=== PATIENT | male | born 1970 | race Caucasian/White ===

== ENCOUNTER 2019-04-07 11:38 | Outpatient (CLI) | payer OTHER, SELFPAY ==
[2019-04-10 05:25] LABS: Prolactin 53.8 ng/mL (***)
[2019-04-12 13:55] LABS: Testosterone Total 250 ng/dL (250-1100)
== END 2019-04-07 11:39 | disposition home or self-care (01) ==
LOC: ANHLAB 11:41
PROVIDERS: PCP Internal Medicine; Visit Provider Internal Medicine Endocrinology, Diabetes & Metabolism
DX: D35.2 Benign neoplasm of pituitary gland (principal)
CPT/HCPCS: 36415; 84146; 84402; 84403

== ENCOUNTER 2019-08-11 07:25 | Outpatient (CLI) | payer OTHER, SELFPAY ==
[2019-08-11 07:58] LABS: Hematocrit 39.7 % (42.0-52.0); Hemoglobin 14.1 g/dL (14.0-18.0)
[2019-08-11 08:41] LABS: Prostate Specific Antigen 0.4 ng/mL (< OR = 4.0)
[2019-08-15 14:45] LABS: Testosterone Free 43.2 pg/mL (35.0-155.0); Testosterone Total 318 ng/dL (250-1100)
[2019-08-15 21:55] LABS: Prolactin 52.6 ng/mL (***)
== END 2019-08-11 07:26 | disposition home or self-care (01) ==
PROVIDERS: PCP Internal Medicine; Visit Provider Internal Medicine Endocrinology, Diabetes & Metabolism
DX: D35.2 Benign neoplasm of pituitary gland (principal); E29.1 Testicular hypofunction
CPT/HCPCS: 36415; 84146; 84153; 84402; 84403; 85014; 85018; G0103

== ENCOUNTER 2020-01-19 07:26 | Outpatient (CLI) | payer OTHER, SELFPAY ==
[2020-01-19 07:57] LABS: Basophils Percent Auto 0.6 % (0.2-1.2); Eosinophils Absolute Auto 0.3 K/mm3 (0-0.3); Eosinophils Percent Auto 5.3 % (0-4.4); Hematocrit 40.1 % (42.0-52.0); Hemoglobin 14.4 g/dL (14.0-18.0); Immature Granulocyte Absolute 0.02 K/mm3 (0.00-0.031); Immature Granulocyte Percent A 0.4 % (0-0.5); Lymphocytes Absolute Auto 1.44 K/mm3 (0.9-3.2); Lymphocytes Percent Auto 29.5 % (18.3-44.2); Mean Corpuscular HGB Conc 35.9 g/dl (32-36); Mean Corpuscular Hemoglobin 31.8 pg (26-34); Mean Corpuscular Volume 88.5 fl (80-100); Mean Platelet Volume 10.3 fl (7.4-10.4); Monocytes Absolute Auto 0.5 K/mm3 (0.1-0.6); Monocytes Percent Auto 10.9 % (2.6-8.5); Neutrophils Absolute Auto 2.6 K/mm3 (1.3-6.7); Neutrophils Percent Auto 53.3 % (45.5-73.1); Platelet Count Result 148 k/mm3 (150-375); Red Blood Count 4.53 M/mm3 (4.6-6.20); Red Cell Distribution Width 12.4 % (11.5-14.5); White Blood Count 4.9 K/mm3 (4.5-10.0)
[2020-01-19 08:18] LABS: Alanine Aminotransferase 30 U/L (4-50); Albumin Level 4.2 g/dL (3.5-5.1); Alkaline Phosphatase 66 U/L (38-126); Anion Gap 3 mmol/L (8-16); Aspartate Amino Transferase 25 U/L (17-59); Bilirubin,Total 1.3 mg/dL (0.2-1.3); Blood Urea Nitrogen 17 mg/dL (9-20); Calcium 9.3 mg/dL (8.4-10.2); Carbon Dioxide 31 mmol/L (22-30); Chloride 105 mmol/L (98-107); Cholesterol 214 mg/dL (0-200); Estimated Glomerular Filt Rate > 60; Glucose 93 mg/dL (75-110); HDL Direct 35 mg/dL; Sodium 139 mmol/L (137-145); Triglycerides 221 mg/dL (<150)
[2020-01-19 08:29] LABS: LDL Cholesterol Direct 113 mg/dL
[2020-01-19 08:48] LABS: Cortisol Random 7.85 ug/dL
[2020-01-19 08:49] LABS: Prostate Specific Antigen 0.4 ng/mL (< OR = 4.0)
[2020-01-19 09:26] LABS: Folic Acid 8.6 ng/mL (2.76->20); Vitamin B12 > 1000.0 pg/mL (239-931)
[2020-01-24 12:31] LABS: Testosterone Free 61.9 pg/mL (35.0-155.0); Testosterone Total 364 ng/dL (250-1100)
== END 2020-01-19 07:27 | disposition home or self-care (01) ==
PROVIDERS: PCP Internal Medicine; Visit Provider Internal Medicine
DX: E78.5 Hyperlipidemia, unspecified (principal); Z12.5 Encounter for screening for malignant neoplasm of prostate; R53.83 Other fatigue; R76.8 Other specified abnormal immunological findings in serum
CPT/HCPCS: 36415; 80053; 80061; 82533; 82607; 82746; 84153; 84402; 84403; 84443; 85025; 86038; 86039

== ENCOUNTER 2020-06-12 10:26 | Outpatient (CLI) | payer OTHER, SELFPAY ==
--- NOTE | ~2020-06-12 | XR_ITS ---
XR hand LT min 3V DATE: 06/12/2020 11:11 INDICATION: Multiple left hand joint pain TECHNIQUE: 3 views COMPARISON: None FINDINGS: There is an old healed boxer's fracture deformity of the fifth metacarpal neck. Mild osteoarthritic change at some of the interphalangeal joints. No fracture or dislocation, periosteal reaction or bone destruction. IMPRESSION: Old healed boxer's fracture of fifth metacarpal Mild osteoarthritis Reviewed, dictated and finalized at location A.
--- NOTE | ~2020-06-12 | XR_ITS ---
EXAMINATION: XR knee RT 3V DATE: 06/12/2020 11:11 INDICATION: Multiple joint pain. TECHNIQUE: 3 views of right knee were obtained. COMPARISON: None. FINDINGS: Bone alignment is normal. No fracture. There is mild tricompartmental osteoarthritis charac terized by tiny marginal osteophytes. No knee joint effusion. IMPRESSION: 1. Mild right knee osteoarthritis. Reviewed, dictated and finalized at location A.
--- NOTE | ~2020-06-12 | XR_ITS ---
EXAMINATION: XR hip RT min 2V DATE: 06/12/2020 11:11 INDICATION: Multiple joint pain. TECHNIQUE: 2 views of right hip were obtained. COMPARISON: None. FINDINGS: Bone alignment is normal. No fracture. Right hip joint space is normal. IMPRESSION: 1. Normal right hip. Reviewed, dictated and finalized at location A. IMPRESSION: 1. Normal right hip.
--- NOTE | ~2020-06-12 | XR_ITS ---
XR hand RT min 3V DATE: 06/12/2020 11:11 INDICATION: Multiple joint pain TECHNIQUE: 3 views of right hand COMPARISON: None FINDINGS: Moderate osteoarthritic arthritis at the first carpometacarpal joint. There is osteoarthrit ic change of moderate degree at the first metacarpophalangeal and interphalangeal joints. Mild interp halangeal joint osteoarthritis is noted at multiple joints including the third proximal interphalange al joint. No fracture, dislocation, periosteal reaction or bone destruction, erosive change or chondrocalcinosi s. IMPRESSION: Polyarticular osteoarthritis Reviewed, dictated and finalized at location A.
--- NOTE | ~2020-06-12 | XR_ITS ---
EXAMINATION: XR knee LT 3V DATE: 06/12/2020 11:11 INDICATION: Multiple joint pain. TECHNIQUE: 3 views of left knee were obtained. COMPARISON: None. FINDINGS: Bone alignment is normal. No fracture. There is moderate osteoarthritis of lateral compartm ent and mild osteoarthritis of medial and patellofemoral compartments. No knee joint effusion. IMPRESSION: 1. Moderate left knee osteoarthritis. Reviewed, dictated and finalized at location A.
== END 2020-06-12 10:27 | disposition home or self-care (01) ==
PROVIDERS: PCP Internal Medicine; Visit Provider Internal Medicine Rheumatology
DX: M25.50 Pain in unspecified joint (principal); M19.041 Primary osteoarthritis, right hand; M19.042 Primary osteoarthritis, left hand; M17.0 Bilateral primary osteoarthritis of knee
CPT/HCPCS: 73130; 73502; 73562

== ENCOUNTER → 2020-07-03 02:13 | Outpatient (CLI) | payer OTHER, SELFPAY ==
[2020-07-03 19:24] LABS: SARS-CoV-2 RNA PCR Negative
== END ==
PROVIDERS: PCP Internal Medicine; Visit Provider Internal Medicine Critical Care Medicine
DX: Z01.812 Encounter for preprocedural laboratory examination (principal); Z20.822 Contact with and (suspected) exposure to COVID-19
CPT/HCPCS: C9803; U0003; U0005

== ENCOUNTER 2020-07-05 10:12 | Outpatient (CLI) | payer OTHER, SELFPAY ==
--- NOTE | 2020-07-11 11:46 | WPDSLEEPSTUD ---
Sleep Study Ordering Provider: Leatha Page MD Interpreting Physician: Claudia Bennett MD Sleep Study Type: Polysomnogram Height: 1.78 m Weight: 96.162 kg Body Mass Index: 30.4 Neck Circumference (inches): 16.5 Harrison: 5 Reason for Sleep Study Loud snoring, tired in the daytime Sleep History Flo Hartmann is a 50 year old man who has difficulty falling asleep and staying asleep. He snores at times. He is tired during the day. This does not happen every night. It has been going on for 1-2 years. He occasionally awakens from sleep feeling short of breath. He rarely awakens at night with heartburn, belching or coughing. He occasionally snores and occasionally it is loud enough that others complain about it. He occasionally has trouble sleeping with a cold. He does not wake up gasping for breath at night. He does not have breathing problems at night observed by others. He rarely sweats excessively at night. He does not notice his heart pounding or beating irregularly night. He rarely falls asleep during the day, never involuntarily and never while driving. He rarely has loss of muscle tone with strong emotion. 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 he does not feel paralyzed on waking or falling asleep. He does not have vivid dreamlike scenes upon awakening or falling asleep. He does not feel afraid to go to sleep. He occasionally has nightmares, occasionally remembers his dreams. He occasionally has racing thoughts. On occasion he feels sad, depressed and anxious. He occasionally has muscular tension. He rarely notices parts of his body jerking. He occasionally kicks at night and occasionally has crawling and aching feelings in his legs. He occasionally has leg pain at night. He does not wake up with morning jaw pain and he does not grind his teeth during sleep. He occasionally has bothered by pain during the day and occasionally is awake at night. He frequently wakes up feeling stiff in the morning. He rarely wakes up with sore or achy muscles. He occasionally wakes up with pain in the neck and spine. He has fatigue, bowel disturbances and insomnia. He has had problems with sexual function with a history of a pituitary adenoma. He is allergic to trees, grasses, and pet dander. Normal bedtime is 10:30 p.m. falling asleep within an hour, typically waking 3-4 times at night, sometimes more often. He is not sure what is waking him at night. He rolls over and tries to go back to sleep which usually takes about 5 minutes. He wakes the morning at 5:00 a.m.. On the weekend he stays awake until 11:00 p.m. and wakes at 6:30 a.m. he has call shifts every . He does not take naps. A short nap is not refreshing. Most of the time he feels good in the morning. He feels better in the afternoon compared to the mornings in general. Habits: Never smoked tobacco. Caffeine 2-3 cups a day. 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 Family History Family History Mother Asthma Family history of arthritis Father Malignant neoplasm of prostate Social History Social History Smoking status: Never smoker Second hand tobacco smoke exposure: No Alcohol intake: current Substance use: never Medications Home Medications Medication Instructions Recorded Confirmed Type cholecalciferol (vitamin D3) 1,250 50,000 unit PO WEEKLY 02/10/19 03/13/20 History mcg (50,000 unit) capsule fluticasone propionate 50 2 spray NASAL DAILY 02/10/19 03/13/20 History mcg/actuation nasal spray,suspension naproxen sodium 220 mg tablet 220 mg PO BID PRN 02/10/19 03/13/20 History vitamin B12 500 mcg-folic acid 400 1 tab
[2020-07-11 11:55] VITALS: BMI 30.4
== END 2020-07-05 10:13 | disposition home or self-care (01) ==
LOC: ANHCSM 10:12
PROVIDERS: PCP Internal Medicine; Visit Provider Internal Medicine Endocrinology, Diabetes & Metabolism
DX: G47.10 Hypersomnia, unspecified (principal); G47.33 Obstructive sleep apnea (adult) (pediatric); G25.81 Restless legs syndrome
CPT/HCPCS: 95810

== ENCOUNTER 2020-10-05 06:55 | Outpatient (CLI) | payer OTHER, SELFPAY ==
[2020-10-05 07:25] LABS: Basophils Percent Auto 0.8 % (0.2-1.2); Eosinophils Absolute Auto 0.3 K/mm3 (0-0.3); Eosinophils Percent Auto 5.8 % (0-4.4); Hematocrit 39.6 % (42.0-52.0); Hemoglobin 14.1 g/dL (14.0-18.0); Immature Granulocyte Absolute 0.01 K/mm3 (0.00-0.031); Immature Granulocyte Percent A 0.2 % (0-0.5); Lymphocytes Absolute Auto 1.41 K/mm3 (0.9-3.2); Lymphocytes Percent Auto 29.2 % (18.3-44.2); Mean Corpuscular HGB Conc 35.6 g/dl (32-36); Mean Corpuscular Hemoglobin 31.5 pg (26-34); Mean Corpuscular Volume 88.6 fl (80-100); Mean Platelet Volume 10.2 fl (7.4-10.4); Monocytes Absolute Auto 0.6 K/mm3 (0.1-0.6); Monocytes Percent Auto 11.6 % (2.6-8.5); Neutrophils Absolute Auto 2.5 K/mm3 (1.3-6.7); Neutrophils Percent Auto 52.4 % (45.5-73.1); Nucleated Red Blood Cells Perc 0.6 % (0.0-0.2); Platelet Count Result 152 k/mm3 (150-375); Red Blood Count 4.47 M/mm3 (4.6-6.20); Red Cell Distribution Width 12.4 % (11.5-14.5); White Blood Count 4.8 K/mm3 (4.5-10.0)
[2020-10-05 07:46] LABS: Alanine Aminotransferase 37 U/L (4-50); Albumin Level 4.2 g/dL (3.5-5.1); Alkaline Phosphatase 85 U/L (38-126); Anion Gap 7 mmol/L (8-16); Aspartate Amino Transferase 26 U/L (17-59); Bilirubin,Total 0.9 mg/dL (0.2-1.3); Blood Urea Nitrogen 19 mg/dL (9-20); Calcium 9.4 mg/dL (8.4-10.2); Carbon Dioxide 25 mmol/L (22-30); Chloride 106 mmol/L (98-107); Cholesterol 248 mg/dL (0-200); Estimated Glomerular Filt Rate > 60; Glucose 104 mg/dL (65-110); HDL Direct 39 mg/dL; Potassium 4.1 mmol/L (3.4-5.0); Sodium 138 mmol/L (137-145); Triglycerides 222 mg/dL (<150)
[2020-10-05 07:57] LABS: LDL Cholesterol Direct 120 mg/dL
[2020-10-05 08:17] LABS: Prostate Specific Antigen 0.4 ng/mL (< OR = 4.0)
[2020-10-05 08:56] LABS: Folic Acid 8.3 ng/mL (2.76->20); Vitamin B12 > 1000.0 pg/mL (239-931)
[2020-10-08 14:01] LABS: Testosterone Total 247 ng/dL (250-1100)
[2020-10-08 14:42] LABS: Prolactin 45.2 ng/mL (***)
[2020-10-08 18:16] LABS: Testosterone Free 33.9 pg/mL (46.0-224.0)
== END 2020-10-05 06:56 | disposition home or self-care (01) ==
PROVIDERS: PCP Internal Medicine; Visit Provider Internal Medicine Endocrinology, Diabetes & Metabolism
DX: Z12.5 Encounter for screening for malignant neoplasm of prostate (principal); D35.2 Benign neoplasm of pituitary gland; R53.83 Other fatigue; E29.1 Testicular hypofunction; G25.81 Restless legs syndrome
CPT/HCPCS: 36415; 80053; 80061; 82607; 82728; 82746; 84146; 84153; 84402; 84403; 84443; 85025; G0103

== ENCOUNTER 2023-06-02 01:45 | Day surgery (SDC) | payer OTHER, SELFPAY ==
[2023-05-25 12:33] VITALS: BMI 30.9
--- NOTE | 2023-05-29 10:50 | SUR.PREOP ---
Patient called regarding upcoming procedure. Reviewed preop instructions, appointment times, and procedure prep.
[2023-06-02 09:05] VITALS: BP 112/84; PULSE 69; RESP 16; TEMP 36.1; O2SAT 100
[2023-06-02] MEDS: LACTATED RINGERS 1,000 ML 150 ML IV CONT (09:19)
--- NOTE | 2023-06-02 09:27 | WPDANESEPPF ---
Anes - Initial Pre Proc Eval Procedure: Operation Date: 06/02/23 10:30 Proposed Procedures p Screening Colonoscopy - Shashank Liriano MD Date/Time: 06/02/23 09:27 Surgeon: Shashank Liriano MD Pre Op Diagnosis: neoplasm screening Patient Data Age: 53 Gender: M Height: 1.75 m Weight: 93.6 kg Last Vital Signs Temp 96.9 F L 06/02/23 09:05 Pulse 69 06/02/23 09:05 Resp 16 06/02/23 09:05 BP 112/84 06/02/23 09:05 Pulse Ox 100 06/02/23 09:05 O2 Del Method Room Air 06/02/23 09:05 Allergies Allergy/AdvReac Type Severity Reaction Status Date / Time erythromycin base Allergy Mild unknown Verified 06/02/23 09:04 Home Medications Medication Instructions Recorded Confirmed Type cholecalciferol (vitamin D3) 1,250 50,000 unit PO WEEKLY 02/10/19 05/25/23 History mcg (50,000 unit) capsule fluticasone propionate 50 2 spray intranasal DAILY 02/10/19 05/25/23 History mcg/actuation nasal spray,suspension (Flonase Allergy Relief) naproxen sodium 220 mg tablet 220 mg PO BID PRN Pain 02/10/19 05/25/23 History (Aleve) vitamin B12 500 mcg-folic acid 400 1 tablet PO DAILY 02/10/19 05/25/23 History mcg tablet testosterone (AndroGel) 3 pump topical DAILY 90 days #225 02/02/22 05/25/23 Rx grams cabergoline 0.5 mg tablet See Rx Instructions .Route 10/13/22 06/02/23 Rx .COMPLEX #90 tabs Patient hx anesthesia problems: none Family hx anesthesia problems: none Results Review: All pre-operative results and documents have been reviewed as part of the pre-operative evaluation. 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 Family History Family History Mother Asthma Family history of arthritis Parkinsons Father Malignant neoplasm of prostate Social History Social History Smoking status: Never smoker Second hand tobacco smoke exposure: No Alcohol intake: current Drinks per week: 2 Substance use: never Substance use type: does not use Living arrangements: with family Spiritual care concerns: No Anes - Eval Final PreProcedure Day of Procedure 06/02/23 09:27 Patient weight: normal Heart: regular rate and rhythm Lungs: clear to auscultation Airway: Mallampati scale class II Neurological: alert and oriented Last oral intake: >/= 8 hours ASA classification: II Emergent: no Anesthetic plan: proceed Anesthesia type and monitoring: general GIVS and standard monitoring Results Review: All pre-operative results and documents have been reviewed as part of the pre-operative evaluation. Informed Consent: The patient's anesthetic plan and its attendant risks and benefits were discussed with the patient/family/POA. Questions were solicited and answers provided to the satisfaction of the patient/family/POA.
--- NOTE | 2023-06-02 09:57 | PM.HPGS ---
History of Present Illness History of Present Illness Consent: Risks, benefits, and alternatives have been discussed and questions answered. Patient agrees to proceed with procedure. 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 Family History Family History Mother Asthma Family history of arthritis Parkinsons Father Malignant neoplasm of prostate Social History Social History Smoking status: Never smoker Second hand tobacco smoke exposure: No Alcohol intake: current Drinks per week: 2 Substance use: never Substance use type: does not use Living arrangements: with family Spiritual care concerns: No Meds Home Medications and Allergies Home Medications Medication Instructions Recorded Confirmed Type cholecalciferol (vitamin D3) 1,250 50,000 unit PO WEEKLY 02/10/19 05/25/23 History mcg (50,000 unit) capsule fluticasone propionate 50 2 spray intranasal DAILY 02/10/19 05/25/23 History mcg/actuation nasal spray,suspension (Flonase Allergy Relief) naproxen sodium 220 mg tablet 220 mg PO BID PRN Pain 02/10/19 05/25/23 History (Aleve) vitamin B12 500 mcg-folic acid 400 1 tablet PO DAILY 02/10/19 05/25/23 History mcg tablet testosterone (AndroGel) 3 pump topical DAILY 90 days #225 02/02/22 05/25/23 Rx grams cabergoline 0.5 mg tablet See Rx Instructions .Route 10/13/22 06/02/23 Rx .COMPLEX #90 tabs Allergies Allergy/AdvReac Type Severity Reaction Status Date / Time erythromycin base Allergy Mild unknown Verified 06/02/23 09:04 Vital Signs Vital Signs - 24 hr 06/02/23 09:05 Temperature 96.9 F L Pulse Rate 69 Respiratory Rate 16 Blood Pressure 112/84 Pulse Oximetry 100 Oxygen Delivery Room Air Exam Const: General: comfortable and no acute distress HENMT: Face/Nose/Sinus: Normal nares present Eyes: General: appearance normal, both eyes and all related structures Neck: Neck: no JVD Resp: Auscultation: clear to auscultation bilaterally Cardio: Rate: regular rate Rhythm: regular rhythm GI: Inspection: non-distended GI Palp: Yes Soft to palpation Skin: General skin exam: normal color Neuro: General: gait normal Speech: normal speech Extrem: General: normal to inspection Psych: Mental Status: mental status grossly normal Assessment and Plan Assessment and plan (1) Colon cancer screening: Code(s): Z12.11 - Encounter for screening for malignant neoplasm of colon Status: Acute Assessment and Plan: colonoscopy
[2023-06-02 10:11] VITALS: BP 96/69; PULSE 77; RESP 23; O2SAT 94
[2023-06-02 10:21] VITALS: BP 103/76; PULSE 81; RESP 24; O2SAT 100
[2023-06-02 10:31] VITALS: BP 113/83; PULSE 70; RESP 16; O2SAT 99
== END 2023-06-02 10:43 | disposition home or self-care (01) ==
PROVIDERS: PCP Internal Medicine; Visit Provider Internal Medicine Gastroenterology
PROC: 0DJD8ZZ Inspection of Lower Intestinal Tract, Via Natural or Artificial Opening Endoscopic (ICD-10-PCS; CPT 45378; principal; 2023-06-02 10:30)
DX: Z12.11 Encounter for screening for malignant neoplasm of colon (principal); K64.8 Other hemorrhoids; E29.1 Testicular hypofunction; Z79.1 Long term (current) use of non-steroidal anti-inflammatories (NSAID); Z86.018 Personal history of other benign neoplasm; Z80.42 Family history of malignant neoplasm of prostate
CPT/HCPCS: 45378; J2704; J7120

== ENCOUNTER 2024-04-12 11:18 | Outpatient (CLI) | payer OTHER, SELFPAY ==
--- NOTE | ~2024-04-12 | XR_ITS ---
Right Hand Technique: PA, oblique, and lateral views were obtained. Clinical History: Radial styloid tenosynovitis Findings: No acute fracture or dislocation is seen. Osseous alignment is anatomic. There is mild to m oderate degenerative change of the first CMC joint and first MCP joint. Soft tissues are unremarkable . Impression: Degenerative changes of the thumb, as above. Reviewed, dictated and finalized at location M. [facility] Impression: Degenerative changes of the thumb, as above.
--- OUTSIDE RECORDS SUMMARY | 2024-04-12 12:41 | XMS_ITS | Clinical Summary ---
Author Organization [facility] Address [address] [place] [address] Phone Care Team Providers Care Cloud Administrator Name Role Phone Unavailable Unavailable Unavailable Reason for Visit and Chief Complaint The Chief Complaint is: PRE EMPLOYMENT EXAM AND TB TEST(( GIVEN SUBQ LEFT ARM) Plan of Treatment Patient evaluated and cleared for work. Form filled out and sent back to in office mail. Patient had labs completed at hospital this morning. Return in 48-72 hours for TB test reading. Then return again for second round. Return for any concerns. - Last Documented On 10/16/2020 1:07PM ; [facility] Instructions to patient Intervention and counseling on cessation of tobacco use Last Documented On 9:44AM ; [facility] Assessments Includes: Assessments from this encounter Findings - [Z00.00 - Encounter for general adult medical examination without abnormal findings] Routine examination - Last Documented On 10/16/2020 1:07PM ; [facility] Instructions Includes: Instructions from this encounter Instructions to patient Intervention and counseling on cessation of tobacco use Last Documented On 9:44AM ; [facility] Medical Equipment - Implanted Devices Includes: Current Devices No Medical Equipment Recorded Medications Administered Includes: Administered Medications from this encounter No Administered Medications Recorded Vital Signs Includes: Vital Signs from this encounter Vital Name 10/16/2020 09:36A Blood Pressure Sitting L 100/70 Pulse Rate-Sitting (bpm) 60 Respiration Rate (breaths/min) 20 Temp-Oral (F) 97.5 Height (in) 69.5 Weight (lb) 210.25 Body Mass Index (kg/m2) 30.6 Body Surface Area (m2) 2.1 Last Documented: On 10/16/2020 9:43AM ; [facility] Results Includes: Results discussed during this encounter No Results Recorded For Specified Dates History of Present Illness Includes: History of Present Illness from this encounter SYLVIA GAN is a 50 year old male. - Allergy list reviewed. - No systemic symptoms. - No head symptoms. - No otolaryngeal symptoms. - No cardiovascular symptoms. - No pulmonary symptoms. - No gastrointestinal symptoms. - No genitourinary symptoms. - No musculoskeletal symptoms. - No psychological symptoms. Patient is here for pre-employment physical exam. 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 Patient denies any issues or concerns today. He reports his blood pressure always runs a little low but he denies any symptoms with this. Social History Description Last Updated Tobacco non-user 10/16/2020 Last Documented On 1 1:07PM ; [facility] Smoking Status Unknown Procedures and Surgical History Includes: Procedures from this encounter Procedures Code Diagnosis Performing Provider Service L ocation Service Date intervention and counseling on cessation of tobacco use 4000F Last Documented On 1 9:44AM ; [facility] use of tobacco assessment performed 1000F Last Documented On 1 9:44AM ; [facility] review of medications documented 1160F Last Documented On 1 9:44AM ; [facility] Medical History Includes: Medical History addressed during this encounter No Medical History Recorded Family History Includes: Family History addressed during this encounter No Family History Recorded Review of Systems Includes: Review of Systems from this encounter Systemic: No fever, no chills, and no recent weight change. Head: No headache and no sinus pain. Otolaryngeal: No earache, no nasal discharge, and no sore throat. Cardiovascular: No chest pain or discomfort and no palpitations. Pulmonary: No dyspnea and no cough. Gastrointestinal: No heartburn. No nausea, no vomiting, no abdominal pain, and no melena. No diarrhea. Genitourinary: No hematuria and no dysuria. Musculoskeletal: No localized joint pain. Neurological: No dizziness and no fainting. Psychological: No anxiety and no depression. Skin: No skin lesions. Mental Status Includes: Mental Status from this encounter Description No anxiety Functional Status Includes: Functional Status from this encounter No Functional Status Recorded Physical Exam Includes: Physical Exam from this encounter Immunizations Includes: Immunizations addressed during this encounter Vaccine Dose # Date Site Reaction(s) Status Source TB TST (NOS) 2 10/16/2020 Left Arm Complete (Repor dar) Patient Last Documented On 1 8:55AM ; [facility] Allergies Includes: Active Allergies No Known Allergies Encounters Encounter Provider Location Date Check-In Time Check-Out Time Diagnosis [facility] PRE-EMPLOYMEN T EXAM/INITIAL TB SKIN TEST RAMBO AREVALO PA-C [facility] 10/17/19 21 8:34AM 10:03AM Routine Examination Insurance Includes: Active Insurance Policies No Insurance Coverage Recorded Guarantor Relationship Effective Dates Guarantor Ph one [facility], 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
--- OUTSIDE RECORDS SUMMARY | 2024-04-12 12:41 | XMS_ITS | Clinical Summary ---
Author Organization [facility] Address [address] [place] [address] Phone Care Team Providers Care Programmer Name Role Phone Unavailable Unavailable Unavailable Reason for Visit and Chief Complaint The Chief Complaint is: Pt is here for a [facility] pre-employment exam, Plan of Treatment - 1. F/U in 48-72 hours to get TB skin test read. 2. Return in 10-15 days to get second TB skin test done. 3. F/U in 48-72 hours after the second TB skin test to get it read.4. Filled out pre-employment form completely and sent back to .5. Patient has already got his blood work done this morning. - 1) Return to the clinic if condition worsens or new symptoms arise. 2) Patient to call if problem develops. - Last Documented On 04/13/2019 11:17AM ; [facility] Assessments Includes: Assessments from this encounter Findings - Routine pre-employment screening examination without abnormal findings. - Last Documented On 04/13/2019 11:17AM ; [facility] Medical Equipment - Implanted Devices Includes: Current Devices No Medical Equipment Recorded Medications Administered Includes: Administered Medications from this encounter No Administered Medications Recorded Vital Signs Includes: Vital Signs from this encounter Vital Name 04/13/2019 10:43A Blood Pressure Sitting L 108/82 BP Cuff Size Regular Pulse Rate-Sitting (bpm) 60 Respiration Rate (breaths/min) 18 Temp-Oral (F) 97.9 Body Length (in) 69 Weight (lb) 211 Body Mass Index (kg/m2) 31.2 Body Surface Area (m2) 2.1 Last Documented: On 04/13/2019 10:47A M ; [facility] Results Includes: Results discussed during this encounter No Results Recorded For Specified Dates History of Present Illness Includes: History of Present Illness from this encounter HPI - Medication reconciliation performed. - Allergy list reviewed. - Patient Flo Gan is a 49 year old male who presents today for a [facility] Pre-employment exam and 1st TB skin test. His PCP is Dr. Edwards and has been with him for 9 years. Medications include Androgel and Cabergoline (has pituitary adenoma). Reports he had a broken hand in 1995. He had an arthroscopic of his left knee in 1984 (for torn ACL). Has seasonal allergies which he uses OTC medications during the season. He wears glasses to read and drive. Sees the eye doctor every other year. Currently works at [employer] in the [employer] as a [employer]. Denies any concerns today. He does ask if he can get his TB skin test read at [facility]. Social History No Social History Recorded - Smoking Status Unknown Procedures and Surgical History Includes: Procedures from this encounter Procedures Code Diagnosis Performing Provider Service L ocation Service Date education and instructions Last Documented On 0 11:17AM ; [facility] Medical History Includes: Medical History addressed during this encounter No Medical History Recorded Family History Includes: Family History addressed during this encounter No Family History Recorded Review of Systems Includes: Review of Systems from this encounter - General: Denies chills, fever, fatigue, night sweats, or sleep disturbances. - EENT: Denies itchy eyes, vision changes, tearing of eyes, hearing loss, tinnitus, vertigo, epistaxis, rhinorrhea, congestion, sore throat, or itchy throat. - Cardiac: Denies chest pain, palpitations, claudication, edema, murmurs, orthopnea, or dyspnea on exertion. - Pulmonary: Denies cough, sputum production, hemoptysis, dyspnea, wheezing, or pain on inspiration. - GI: Denies nausea, vomiting, constipation, diarrhea, appetite change, heartburn, blood in stool, abdominal pain, or dysphagia. - : Denies urgency, dysuria, burning with urination, hematuria, polyuria, nocturia, or incontinence. - Musculoskeletal: Denies joint pain, stiffness, back pain, redness of joints, or swelling. Normal ROM. - Skin: Denies itching, rash, lumps, or sores. - Neuro: Denies lightheadedness, syncope, headache, numbness, tingling, decreased sensation, or slurring of speech. - Psych: Denies stress, anxiety, depression, suicidal, memory deficits, mood changes, or trouble concentrating. Mental Status Includes: Mental Status from this encounter No Mental Status Recorded Functional Status Includes: Functional Status from this encounter No Functional Status Recorded Physical Exam Includes: Physical Exam from this encounter Immunizations Includes: Immunizations addressed during this encounter Vaccine Dose # Date Site Reaction(s) Status Source TB TST (NOS) 1 04/13/2019 Left Lower Forearm Complete (Administered) [facility] Last Documented On 1 9:06AM ; [facility] Allergies Includes: Active Allergies No Known Allergies Encounters Encounter Provider Location Date Check-In Time Check-Out Time Diagnosis [facility] PRE-EMPLOYMEN T EXAM/INITIAL TB SKIN TEST ZAID SHEPHERD WREATH MAKER-[facility]- 04/13/19 20 10:30AM 11:07AM Routine Pre-employment Screening Examination Without Abnormal Findings Insurance Includes: Active Insurance Policies No Insurance Coverage Recorded Guarantor Relationship Effective Dates Guarantor Ph one [facility], 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
--- OUTSIDE RECORDS SUMMARY | 2024-04-12 12:41 | XMS_ITS | Clinical Summary ---
Author Organization [facility] Address [address] [place] [address] Phone Care Team Providers Care Aviation Electrician Name Role Phone Unavailable Unavailable Unavailable Reason for Visit and Chief Complaint The Chief Complaint is: Patient is here for second TB skin test, Plan of Treatment No Plan of Treatment Recorded Assessments Includes: Assessments from this encounter No Assessments Recorded Medical Equipment - Implanted Devices Includes: Current Devices No Medical Equipment Recorded Medications Administered Includes: Administered Medications from this encounter No Administered Medications Recorded Vital Signs Includes: Vital Signs from this encounter Vital Name 10/26/2020 11:13A Height (in) 69.5 Last Documented: On 10/26/2020 11:14A M ; [facility] Results Includes: Results discussed during this encounter No Results Recorded For Specified Dates History of Present Illness Includes: History of Present Illness from this encounter No History of Present Illness Recorded Social History Description Last Updated Tobacco non-user 10/16/2020 Last Documented On 1 10:55AM ; [facility] Smoking Status Unknown Medical History Includes: Medical History addressed during this encounter No Medical History Recorded Family History Includes: Family History addressed during this encounter No Family History Recorded Review of Systems Includes: Review of Systems from this encounter No Review of Systems Recorded Mental Status Includes: Mental Status from this encounter No Mental Status Recorded Functional Status Includes: Functional Status from this encounter No Functional Status Recorded Physical Exam Includes: Physical Exam from this encounter Immunizations Includes: Immunizations addressed during this encounter Vaccine Dose # Date Site Reaction(s) Status Source TB TST (NOS) 3 10/26/2020 Left Lower Forearm Complete (Administered) [facility] Last Documented On 1 11:14AM ; [facility] Allergies Includes: Active Allergies No Known Allergies Encounters Encounter Provider Location Date Check-In Time Check-Out Time Diagnosis [facility] TB SKIN TEST JIMI SNOWP-C [facility]- 10/27/19 21 10:38AM 11:15AM Insurance Includes: Active Insurance Policies No Insurance Coverage Recorded Guarantor Relationship Effective Dates Guarantor Ph one [facility], 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
--- OUTSIDE RECORDS SUMMARY | 2024-04-12 12:41 | XMS_ITS ---
Care Plan - [facility] Created on: April 12, 2024 SEB GAN : 1970 Sex: Male Author Organization [facility] Address [address] [place] [address] Phone Care Team Providers Care Explosives Operator Name Role Phone Unavailable Unavailable Unavailable
--- OUTSIDE RECORDS SUMMARY | 2024-04-12 12:41 | XMS_ITS ---
Author Organization [facility] Address [address] [place] [address] Phone Care Team Providers Care Payroll Coordinator Name Role Phone Unavailable Unavailable Unavailable Plan of Treatment Instructions to patient Intervention and counseling on cessation of tobacco use Last Documented On 1 9:44AM ; [facility] Assessments Includes: Assessments for all patient encounters Findings Encounter Date [Z00.00 - Encounter for [facility] adult medical examination without abnormal findings] routine examination [facility] PRE-EMPLOYMENT EXAM/INITIAL TB SKIN TEST with RAMBO AREVALO PA-C 10/16/2020 Last Documented On 1 1:07PM ; [facility] Routine pre-employment scree ulises examination without abnormal findings [facility] PRE-EMPLOYMENT EXAM/INITIAL TB SKIN TEST with ZAID SHEPHERD JAVA SDET-Casandra 04/13/2019 Last Documented On 0 11:17AM ; [facility] Instructions Includes: Instructions for all patient encounters Instructions to patient Intervention and counseling on cessation of tobacco use Last Documented On 1 9:44AM ; [facility] Medical Equipment - Implanted Devices Includes: Current and historical Devices No Medical Equipment Recorded Medications Administered Includes: Administered Medications in patient's chart No Administered Medications Recorded Results Includes: Results from 04/12/2023 through 04/12/2024 No Results Recorded For Specified Dates History of Present Illness History of Present Illness not supported for this document type No History of Present Illness Recorded Social History Description Last Updated Tobacco non-user 10/16/2020 Last Documented On 1 1:07PM ; [facility] Smoking Status Unknown Medical History Includes: Medical History in patient's chart No Medical History Recorded Family History Includes: Family History in patient's chart No Family History Recorded Review of Systems Review of Systems not supported for this document type No Review of Systems Recorded Mental Status No Mental Status Recorded Functional Status No Functional Status Recorded Physical Exam Physical Exam not supported for this document type No Physical Exam Recorded Immunizations Includes: Immunizations in patient's chart Vaccine Dose # Date Site Reaction(s) Status Source TB TST (NOS) 1 04/13/2019 Left Lower Forearm Complete (Administered) [facility] Last Documented On 1 9:06AM ; [facility] TB TST (NOS) 2 10/16/2020 Left Arm Complete (Repor dar) Patient Last Documented On 1 8:55AM ; [facility] TB TST (NOS) 3 10/26/2020 Left Lower Forearm Complete (Administered) [facility] Last Documented On 1 11:14AM ; [facility] Allergies Includes: Active, inactive, and resolved Allergies No Known Allergies Insurance Includes: Active Insurance Policies No Insurance Coverage Recorded Guarantor Relationship Effective Dates Guarantor Ph one [facility], EMPLOYEE PHYS Employee Clinical Notes Includes: Signed Clinical Notes starting from 03/21/2022 No Clinical Notes Recorded
== END 2024-04-12 11:19 | disposition home or self-care (01) ==
PROVIDERS: PCP Internal Medicine; Visit Provider Plastic Surgery
DX: M18.11 Unilateral primary osteoarthritis of first carpometacarpal joint, right hand (principal); M19.071 Primary osteoarthritis, right ankle and foot; M65.4 Radial styloid tenosynovitis [de Quervain]; M65.331 Trigger finger, right middle finger; M65.341 Trigger finger, right ring finger
CPT/HCPCS: 73130